=== PATIENT | male | born 1990 | race Caucasian/White ===

== ENCOUNTER 2019-05-18 10:51 | Emergency (ER) | payer OTHER, SELFPAY ==
--- NOTE | ~2019-05-18 | XR_ITS ---
EXAMINATION: XR chest 1V portable EXAM DATE: 05/18/2019 12:16 INDICATION: Shortness of breath. TECHNIQUE: Portable AP frontal chest x-ray was obtained. There is no prior study for comparison. FINDINGS: The lungs are clear. There are no pleural effusions. The cardiomediastinal silhouette is within normal limits. There is no pneumothorax suspected. The bones and soft tissues are unremarkab le. IMPRESSION: No acute cardiopulmonary findings. Reviewed, dictated and finalized at location B.
[2019-05-18 11:00] VITALS: BP 146/92; PULSE 94; RESP 26; TEMP 36.7; O2SAT 100
[2019-05-18 11:08] VITALS: PULSE 95
--- NOTE | 2019-05-18 11:17 | ED.SOB ---
HPI - SOB/Dyspnea General Chief Complaint: Shortness of Breath/Dyspnea Stated Complaint: short of breath Time Seen by Provider: 05/18/19 10:54 Source: patient and RN notes reviewed Mode of arrival: ambulatory Limitations: no limitations History of Present Illness HPI Narrative: Pt is a 28 y/o male who presents to the ED with c/o SOB starting this morning. He notes that he had upper respiratory symptoms several weeks ago, but states that those symptoms have since resolved. Pt notes that he woke up this morning with SOB. He states that he feels as though he is running when he is just sitting down. Pt also reports dizziness and tingling in his feet, hands, and face, but denies any fever, cough, CP, ABD pain, nausea, vomiting, or diarrhea. He notes that he hasn't had any recent sick contacts or travel. MD elicited complaint: shortness of breath Onset (ago): hour(s) (several) Associated symptoms: dizziness and other (tingling in hands, feet, and face) Related Data Allergies Allergy/AdvReac Type Severity Reaction Status Date / Time No Known Allergies Allergy Verified 05/18/19 11:09 Review of Systems Review of Systems: All systems reviewed & are unremarkable except as noted in HPI and below Constitutional: Constitutional: Denies fever(s) Cardiovascular: Cardiovascular: Denies chest pain Respiratory: Respiratory: Denies cough and Reports dyspnea Gastrointestinal: Gastrointestinal: Denies abdominal pain, Denies diarrhea, Denies nausea and Denies vomiting Neurologic: Reports dizziness and Reports tingling (tingling in hands, feet, and face) PMFSH Past Medical History Medical History Flexural eczema Gastroenteritis Right arm fracture Right hand fracture Surgical History Surgical History Hx of hand surgery repair of rt metacarpal fracture Social History Social History Smoking packs per day: 0.5 Smoking cigarettes per day: 10.0 Smoking status: Current every day smoker Alcohol intake: current Substance use type: marijuana Exam Narrative: Exam Narrative: GENERAL: Well-appearing, well-nourished, and in no acute distress. HEAD: Normocephalic, atraumatic EYES: PERRLA and EOMI, conjunctiva clear without discharge EARS: TM's clear bilaterally without erythema or dullness NOSE: Nares clear, no rhinorrhea or epistaxis THROAT:Mucous membranes moist, Oropharynx normal without erythema, exudate, peritonsillar swelling or fluctuance NECK: Supple, without lymphadenopathy or mass HEART: Regular rate and rhythm. No murmur heard. Normal peripheral pulses. ABDOMEN: Soft, nontender, nondistended, normal active bowel sounds. No masses. No rebound or guarding, No organomegaly. EXTREMITIES: No edema, normal strength with full range of motion. SKIN: Warm, dry, normal color without rash NEURO: Alert and oriented x3. CN 2-12 grossly intact. No focal deficits. PSYCH: Normal mood and affect. Resp: Effort & Inspection: able to speak in complete sentences and tachypneic Auscultation: clear to auscultation bilaterally Course Reevaluation(s) Reevaluation #1: Patient states he feels better. I have discussed that he was found to have hypokalemia which may be due to his hyperventilating as he was on arrival . He has no fever, cough, no pneumonia. I have discussed his d dimer is negative and chest xray is clear Date: 05/18/19 Time: 13:02 Vital Signs Vital signs: Vital Signs Temperature 98.0 F 05/18/19 11:00 Pulse Rate 94 05/18/19 11:00 Respiratory Rate 26 H 05/18/19 11:00 Blood Pressure 146/92 H 05/18/19 11:00 Pulse Oximetry 100 05/18/19 11:00 Temperature 98.0 F 05/18/19 11:00 Pulse Rate 92 05/18/19 13:14 Respiratory Rate 18 05/18/19 13:14 Blood Pressure 141/90 H 05/18/19 13:14 Pulse Oximetry 99 05/18/19 13:14 MDM - SOB/Dyspnea Lab [facility]
--- NOTE | 2019-05-18 11:22 | ECG_ITS ---
Measurements Intervals [place] Rate: 85 P: 37 [place]: 159 QRS: 70 QRSD: 94 T: 7 QT: 346 QTc: 413 Interpretive Statements SINUS RHYTHM WITH MARKED SINUS ARRHYTHMIA LEFT VENTRICULAR HYPERTROPHY AND ST-T CHANGE BORDERLINE ST-T WAVE ABNORMALITY- ANTEROLAT/INF LEADS BASELINE ARTIFACT- I, III, AVL BORDERLINE ECG Electronically Signed On 05-18-2019 11:30:21 CDT by Sandip Yap D.O.
[2019-05-18 11:56] LABS: Basophils Absolute Auto 0.1 K/mm3 (0.0-0.1); Basophils Percent Auto 0.5 % (0.2-1.2); Eosinophils Percent Auto 0.3 % (0-4.4); Hematocrit 48.5 % (42.0-52.0); Hemoglobin 16.8 g/dL (14.0-18.0); Immature Granulocyte Absolute 0.05 K/mm3 (0.00-0.031); Immature Granulocyte Percent A 0.5 % (0-0.5); Lymphocytes Absolute Auto 1.49 K/mm3 (0.9-3.2); Lymphocytes Percent Auto 14.1 % (18.3-44.2); Mean Corpuscular HGB Conc 34.6 g/dl (32-36); Mean Corpuscular Hemoglobin 30.3 pg (26-34); Mean Corpuscular Volume 87.4 fl (80-100); Mean Platelet Volume 10.6 fl (7.4-10.4); Monocytes Absolute Auto 0.8 K/mm3 (0.1-0.6); Monocytes Percent Auto 7.4 % (2.6-8.5); Neutrophils Absolute Auto 8.2 K/mm3 (1.3-6.7); Neutrophils Percent Auto 77.2 % (45.5-73.1); Platelet Count Result 263 k/mm3 (150-375); Red Blood Count 5.55 M/mm3 (4.6-6.20); Red Cell Distribution Width 11.9 % (11.5-14.5); White Blood Count 10.6 K/mm3 (4.5-10.0)
[2019-05-18 12:13] LABS: D Dimer 0.27 ug/mL (<0.48)
[2019-05-18 12:16] LABS: Alanine Aminotransferase 22 U/L (4-50); Albumin Level 4.8 g/dL (3.5-5.1); Alkaline Phosphatase 80 U/L (38-126); Aspartate Amino Transferase 26 U/L (17-59); Bilirubin,Total 0.9 mg/dL (0.2-1.3); Blood Urea Nitrogen 8 mg/dL (9-20); Calcium 10.1 mg/dL (8.4-10.2); Carbon Dioxide 19 mmol/L (22-30); Chloride 104 mmol/L (98-107); Estimated CRCL calculation 133 ml/min; Estimated Glomerular Filt Rate > 60; Glucose 183 mg/dL (75-110); Magnesium 1.7 mg/dL (1.6-2.3); Potassium 2.9 mmol/L (3.4-5.0); Sodium 137 mmol/L (137-145)
[2019-05-18 12:19] LABS: NT Pro B Type Natriuretic Pept 52 PG/ML (5-100); Troponin I < 0.012 ng/mL (0.000-0.034)
[2019-05-18] MEDS: POTASSIUM CHLORIDE 20 MEQ TABLET 40 MEQ PO (12:42)
[2019-05-18 12:51] LABS: Alveolar/Arterial O2 Gradient 17.6 mmHg; Base Excess ABG 0.6 mEq/l (+/-2.0); Fractional Inspired Oxygen 21 %; HCO3 ABG 22.9 mEq/l (22.0-26.0); Oxygen Content ABG 22.9 %vol (16.0-22.0); Oxygen Saturation ABG 97.7 % (95.0-100.0); Oxyhemoglobin 95.1 % THb (90.0-100.0); PCO2 ABG 31.3 mmHg (35.0-45.0); PO2 ABG 94.7 mmHg (80.0-100.0); PO2 FiO2 Ratio Arterial Blood 4.51 %; Total Hemoglobin 17.1 g/dL (12.0-18.0); pH ABG 7.482 (7.350-7.450)
[2019-05-18 12:52] LABS: Device ROOM AIR; Modified Allen's Test Pass; Site Drawn RIGHT RADIAL
[2019-05-18 13:14] VITALS: BP 141/90; PULSE 92; RESP 18; O2SAT 99
== END 2019-05-18 13:15 | disposition home or self-care (01) ==
PROVIDERS: Emergency Provider General Practice; PCP Family Medicine
DX: E87.6 Hypokalemia (principal); R06.00 Dyspnea, unspecified; F17.210 Nicotine dependence, cigarettes, uncomplicated
CPT/HCPCS: 36415; 36600; 71045; 80053; 82805; 83735; 83880; 84484; 85025; 85380; 93005; 99284; A9270